=== PATIENT | male | born 1975 | race Caucasian/White ===

== ENCOUNTER 2016-09-12 08:27 | Emergency (ER) | payer MEDICAID ==
[2016-09-12] MEDS ORDERED: ASPIRIN 81 MG TABLET, CHEWABLE PO ONE (09:08)
--- NOTE | 2016-09-12 09:12 | ER Document Report ---
ED General - General Chief Complaint: Chest Pain Stated Complaint: CHEST PAIN Time Seen by Provider: 09/12/16 08:34 Mode of Arrival: Ambulatory Information source: Patient Notes: 41-year-old male history of hypertension anxiety presents with complaints of chest pain when he takes a deep breath. Patient notes when he is not taking a deep breath there is no pain. Patient notes pain started earlier today denies any fevers or chills denies any nausea or vomiting.. pt denies any recent travel , denies any calf pain, denies any fh of dvt or pe TRAVEL OUTSIDE OF THE [place] IN LAST 30 DAYS: No - HPI Onset: Just prior to arrival Onset/Duration: Sudden Quality of pain: Sharp Severity: Mild Pain Level: 1 Associated symptoms: Chest pain, Shortness of breath Exacerbated by: Coughing, Deep breathing Relieved by: Denies Similar symptoms previously: No Recently seen / treated by doctor: No - Related Data Allergies/Adverse Reactions: No Known Allergies Allergy (Unverified 09/12/16 08:38) Home Medications: Current Home Medications No Home Medications 09/12/16 [History] Past Medical History - Social History Smoking Status: Current Every Day Smoker Cigarette use (# per day): Yes Chew tobacco use (# tins/day): No Smoking Education Provided: No Family History: Reviewed & Not Pertinent Renal/ Medical History: Denies: Hx Peritoneal Dialysis Review of Systems - Review of Systems Notes: REVIEW OF SYSTEMS: CONSTITUTIONAL : Denies fever, chills, or sweats. Denies recent illness. EENT: Denies eye, ear, throat, or mouth pain or symptoms. Denies nasal or sinus congestion or discharge. Denies throat, tongue, or mouth swelling or difficulty swallowing. CARDIOVASCULAR: Denies chest pain. Denies palpitations or racing or irregular heart beat. Denies ankle edema. RESPIRATORY: Admits to pain with breathing. GASTROINTESTINAL: Denies abdominal pain or distention. Denies nausea, vomiting , or diarrhea. Denies blood in vomitus, stools, or per rectum. Denies black, tarry stools. Denies constipation. GENITOURINARY: Denies difficulty urinating, painful urination, burning, frequency, blood in urine, or discharge. MUSCULOSKELETAL: Denies back or neck pain or stiffness. Denies joint pain or swelling. SKIN: Denies rash, lesions or sores. HEMATOLOGIC : Denies easy bruising or bleeding. LYMPHATIC: Denies swollen, enlarged glands. NEUROLOGICAL: Denies confusion or altered mental status. Denies passing out or loss of consciousness. Denies dizziness or lightheadedness. Denies headache. Denies weakness or paralysis or loss of use of either side. Denies problems with gait or speech. Denies sensory loss, numbness, or tingling. Denies seizures. PSYCHIATRIC: Denies anxiety or stress. Denies depression, suicidal ideation, or homicidal ideation. ALL OTHER SYSTEMS REVIEWED AND NEGATIVE. Dictation was performed using [employer] recognition software PHYSICAL EXAMINATION: GENERAL: Well-appearing, well-nourished and in no acute distress. HEAD: Atraumatic, normocephalic. EYES: Pupils equal round and reactive to light, extraocular movements intact, sclera anicteric, conjunctiva are normal. ENT: Nares patent, oropharynx clear without exudates. Moist mucous membranes. NECK: Normal range of motion, supple without lymphadenopathy LUNGS: Breath sounds clear to auscultation bilaterally and equal. No wheezes rales or rhonchi. HEART: Regular rate and rhythm without murmurs ABDOMEN: Soft, nontender, nondistended abdomen. No guarding, no rebound. No masses appreciated. Musculoskeletal: Normal range of motion, no pitting or edema. No cyanosis. NEUROLOGICAL: Cranial nerves grossly intact. Normal speech, normal gait. Normal sensory, motor exams PSYCH: Normal mood, normal affect. SKIN: Multiple tattoos Physical Exam - Vital signs Vitals: Temp Pulse Resp BP Pulse Ox 98.5 F 89 20 141/94 H 99 09/12/16 08:37 09/12/16 08:37 09/12/16 08:37 09/12/16 08:37 09/12/16 08:37 Course - Re-evaluation Re-evalutation: 09/12/16 09:11 Patient has very low risk for a pulmonary emboli however given that the pain occurs only with deep breathing I believe a CTA is appropriate rather than a d- dimer. This may be related more to the patient's smoking versus anxiety 09/12/16 09:49 Patient's troponin is noted to be elevated at 39.9, I immediately sent the patient for an the CTA without a renal function results. This number is unusual given the patient's presentation of pain with only deep breaths 09/12/16 11:28 09/12/16 11:29 CTA negative, marilou martínezd 09/12/16 11:[address] vega - Vital Signs Vital signs: Temp Pulse Resp BP Pulse Ox 98.5 F 89 19 121/78 98 09/12/16 08:37 09/12/16 08:37 09/12/16 11:01 09/12/16 11:01 09/12/16 11:01 - Laboratory Result Diagrams: 09/12/16 08:58 09/12/16 08:58 Laboratory results interpreted by me: 09/12/16 09/12/16 09/12/16 08:58 08:58 08:58 WBC 21.0 H Hgb 13.4 L Band Neutrophils % 1 L Abs Neuts (Manual) 15.3 H Abs Monocytes (Manual) 1.7 H APTT Carbon Dioxide 31 H BUN 28 H Glucose 141 H Direct Bilirubin 0.6 H AST 213 H ALT 145 H Creatine Kinase 1071 H CK-MB (CK-2) 21.50 H 09/12/16 08:58 WBC Hgb Band Neutrophils % Abs Neuts (Manual) Abs Monocytes (Manual) APTT 38.0 H Carbon Dioxide BUN Glucose Direct Bilirubin AST ALT Creatine Kinase CK-MB (CK-2) - Diagnostic Test Radiology reviewed: Image reviewed, Reports reviewed - EKG Interpretation by Me EKG shows normal: Sinus rhythm, [place], Intervals, QRS Complexes, ST-T Waves - Peaked T waves noted in lead V2 Critical Care Note - Critical Care Note Total time excluding time spent on procedures (mins): 44 Comments: 44 minutes of critical care time spent in direct contact evaluating and reevaluating the patient, treating symptoms, reviewing labs and studies and speaking with family and consultants excluding any procedures Discharge - Discharge Clinical Impression: Non-STEMI (non-ST elevated myocardial infarction) Chest pain Qualifiers: Chest pain type: unspecified Qualified Code(s): R07.9 - Chest pain, unspecified Condition: Stable Disposition: [facility]
[2016-09-12 09:21] LABS: HEMATOCRIT 39.7 % (37.9-51.0); HEMOGLOBIN 13.4 g/dL (13.5-17.0); HGB HCT DIFFERENCE 0.5; MEAN CORPUSCULAR HEMOGLOBIN 29.7 pg (27.0-33.4); MEAN CORPUSCULAR HGB CONC 33.7 g/dL (32.0-36.0); MEAN CORPUSCULAR VOLUME 88 fl (80-97); RED BLOOD COUNT 4.51 10^6/uL (4.35-5.55)
[2016-09-12 09:26] LABS: ALANINE AMINOTRANSFERASE 145 U/L (21-72); ALBUMIN 4.6 g/dL (3.5-5.0); ALKALINE PHOSPHATASE 86 U/L (38-126); ANION GAP 11 (5-19); ASPARTATE AMINO TRANSFERASE 213 U/L (17-59); BILIRUBIN,DIRECT 0.6 mg/dL (0.0-0.4); BILIRUBIN,TOTAL 0.8 mg/dL (0.2-1.3); BLOOD UREA NITROGEN 28 mg/dL (7-20); CALCIUM 9.8 mg/dL (8.4-10.2); CARBON DIOXIDE 31 mmol/L (22-30); CHLORIDE 101 mmol/L (98-107); CREATINE KINASE 1071 U/L (55-170); CREATININE RESULT 1.14 mg/dL (0.52-1.25); GLUCOSE 141 mg/dL (75-110); POTASSIUM 3.8 mmol/L (3.6-5.0); SODIUM 142.7 mmol/L (137-145); TOTAL PROTEIN 7.7 g/dL (6.3-8.2)
[2016-09-12 09:37] LABS: CREATINE KINASE MB 21.5 ng/mL (<4.55)
[2016-09-12 09:38] LABS: TROPONIN I 39.9 ng/mL
[2016-09-12 09:41] LABS: BAND NEUTROPHILS % (MANUAL) 1 % (3-5); BASOPHILS % (MANUAL) 0 % (0-2); EOSINOPHILS % (MANUAL) 0 % (0-6); LYMPHOCYTES % (MANUAL) 19 % (13-45); TOTAL CELLS COUNTED 100
[2016-09-12 09:42] LABS: RBC MORPHOLOGY COMMENT NORMO-CYTIC/CHROMIC
[2016-09-12] MEDS: NITROGLYCERIN 0.4 MG/TAB 25 TAB/BOTTLE SL PRN ×2 (10:10→10:40)
[2016-09-12] MEDS ORDERED: HEPARIN SOD (PORCINE) 1,000 UNIT/ML 10 ML VIAL IV ONE (10:28)
[2016-09-12] MEDS ORDERED: HEPARIN SODIUM,PORCINE/D5W 250 ML IV PRN (10:28)
[2016-09-12] MEDS ORDERED: HEPARIN SOD (PORCINE) 1,000 UNIT/ML 10 ML VIAL IV PRN (10:28)
[2016-09-12 10:38] LABS: PROTHROMBIN TIME 14.5 SEC (11.4-15.4)
[2016-09-12] MEDS ORDERED: MORPHINE SULFATE 10 MG/ML INJ IV ONE (11:02)
--- NOTE | 2016-09-12 11:08 | RADIOLOGY REPORT (SQ) ---
EXAM DESCRIPTION: CTA CHEST COMPLETED DATE/TIME: 09/12/2016 10:48 am REASON FOR STUDY: right sided chest pain with breathing COMPARISON: None. TECHNIQUE: CT scan of the chest performed using helical scanning technique with dynamic intravenous contrast injection. Images reviewed with lung, soft tissue and bone windows. Reconstructed coronal and sagittal MPR images reviewed. Additional 3 dimensional post-processing performed to develop Maximal Intensity Projection images (VT P). All images stored on PACS. All CT scanners at this facility use dose modulation, iterative reconstruction, and/or weight based d osing when appropriate to reduce radiation dose to as low as reasonably achievable (ALARA). [facility]: Dose Right [facility]: CareDose [facility]: Dose Right [facility]: Teradose 4D [facility]: [place] CONTRAST TYPE AND DOSE: contrast/concentration: Isovue 370.00 mg/ml; Total Contrast Delivered: 68.0 ml; Total Saline Delivered: 109.0 ml RENAL FUNCTION: BUN 28 creatinine 1.1 RADIATION DOSE: Up-to-date CT equipment and radiation dose reduction techniques were employed. CTDIv ol: 16.4 - 16.5 mGy. DLP: 575 mGy-cm. . LIMITATIONS: None. FINDINGS: LUNGS AND PLEURA: No masses, infiltrates, pneumothorax. No pleural effusions, calcificati ons. AORTA AND GREAT VESSELS: No aneurysm or dissection. HEART: No pericardial effusion. PULMONARY ARTERIES: No emboli visualized in the main pulmonary arteries or the segmental branches. HILAR AND MEDIASTINAL STRUCTURES: No identified masses or abnormal nodes. HARDWARE: None in the chest. UPPER ABDOMEN: No significant findings. Limited exam. THYROID AND OTHER SOFT TISSUES: No masses. No adenopathy. BONES: No acute or significant finding. 3D MIPS: Confirm above findings. OTHER: No other significant finding. IMPRESSION: NORMAL CTA OF THE CHEST. NO PULMONARY EMBOLI. TECHNICAL DOCUMENTATION: JOB ID: [id number] Quality ID # [id number]: Final reports with documentation of one or more dose reduction techniques (e.g., Au tomated exposure control, adjustment of the mA and/or kV according to patient size, use of iterative reconstruction technique) 2010 [employer]- All Rights Reserved
--- NOTE | 2016-09-12 11:14 | EKG REPORT ---
SEVERITY:- ABNORMAL ECG - SINUS RHYTHM INFERIOR INFARCT, AGE INDETERMINATE : Confirmed by: Barbara Spicer MD 12-Sep-2016 11:14:39
[2016-09-12] MEDS ORDERED: HYDROMORPHONE HCL INJ/PF 2 MG/ML AMPULE IV ONE ×2 (11:41→13:00)
[2016-09-12 11:54] LABS: APPEARANCE,URINE CLEAR; BILIRUBIN,URINE NEGATIVE (NEGATIVE); GLUCOSE, URINE NEGATIVE (NEGATIVE); KETONES,URINE TRACE mg/dL (NEGATIVE); LEUKOCYTE ESTERASE,URINE NEGATIVE (NEGATIVE); NITRITE,URINE NEGATIVE (NEGATIVE); PROTEIN,URINE 30 mg/dL (NEGATIVE)
[2016-09-12] MEDS ORDERED: ACETAMINOPHEN 325 MG TABLET PO ONE (11:54)
[2016-09-12 11:55] LABS: URINE SPECIFIC GRAVITY > 1.060
[2016-09-12] MEDS ORDERED: KETOROLAC TROMETHAMINE INJ/PF 30 MG/1 ML SDV IV ONE (13:00)
[2016-09-12 14:48] VITALS: BP 108/81
== END 2016-09-12 14:48 | disposition short-term general hospital (02) ==
LOC: ER 08:27
DX: I21.4 Non-ST elevation (NSTEMI) myocardial infarction (principal); I10 Essential (primary) hypertension; R07.1 Chest pain on breathing; R06.02 Shortness of breath; F17.210 Nicotine dependence, cigarettes, uncomplicated
CPT/HCPCS: 93005; 96376; 99291; 96374; 96375; 36415; 82553; 82550; 85025; 85610; 85730; 80053; 81001; 84484; 71275; 93010; J1644 ×2; J1885; J2270; J1170

== ENCOUNTER 2016-11-08 19:32 | Emergency (ER) | payer MEDICAID ==
--- NOTE | 2016-11-08 21:27 | RADIOLOGY REPORT (SQ) ---
EXAM DESCRIPTION: CHEST PA/LAT COMPLETED DATE/TIME: 11/08/2016 9:10 pm REASON FOR STUDY: CP COMPARISON: None. EXAM PARAMETERS: NUMBER OF VIEWS: two views TECHNIQUE: Digital Frontal and Lateral radiographic views of the chest acquired. RADIATION DOSE: NA LIMITATIONS: none FINDINGS: LUNGS AND PLEURA: No opacities, masses or pneumothorax. No pleural effusion. MEDIASTINUM AND HILAR STRUCTURES: No masses or contour abnormalities. HEART AND VASCULAR STRUCTURES: Heart normal size. No evidence for failure. BONES: No acute findings. HARDWARE: None in the chest. OTHER: No other significant finding. IMPRESSION: NO SIGNIFICANT RADIOGRAPHIC FINDING IN THE CHEST. TECHNICAL DOCUMENTATION: JOB ID: [id number] [employer]- All Rights Reserved
[2016-11-08] MEDS ORDERED: ASPIRIN 81 MG TABLET, CHEWABLE PO ONE (21:47)
[2016-11-08 22:01] LABS: ABSOLUTE BASOPHILS # (AUTO) 0.1 10^3/uL (0.0-0.2); ABSOLUTE EOSINOPHILS # (AUTO) 0.1 10^3/uL (0.0-0.6); ABSOLUTE LYMPHOCYTES (AUTO) 2.9 10^3/uL (0.5-4.7); ABSOLUTE MONOCYTES (AUTO) 2.2 10^3/uL (0.1-1.4); ABSOLUTE NEUT (AUTO) 11.3 10^3/uL (1.7-8.2); BASOPHILS % (AUTO) 0.4 % (0-2); EOSINOPHILS % (AUTO) 0.5 % (0-6); HEMATOCRIT 38.8 % (37.9-51.0); HEMOGLOBIN 13.3 g/dL (13.5-17.0); HGB HCT DIFFERENCE 1.1; LYMPHOCYTES % (AUTO) 17.7 % (13-45); MEAN CORPUSCULAR HEMOGLOBIN 28.9 pg (27.0-33.4); MEAN CORPUSCULAR HGB CONC 34.3 g/dL (32.0-36.0); MEAN CORPUSCULAR VOLUME 84 fl (80-97); MONOCYTES % (AUTO) 13.1 % (3-13); RED CELL DISTRIBUTION WIDTH 13.9 % (11.5-14.0); SEGMENTED NEUTROPHILS % (AUTO) 68.3 % (42-78); WHITE BLOOD COUNT 16.6 10^3/uL (4.0-10.5)
--- NOTE | 2016-11-08 22:10 | ER Document Report ---
ED Cardiac - General Chief Complaint: Chest Pain > 30 Stated Complaint: CHEST PAIN Time Seen by Provider: 11/08/16 21:45 Mode of Arrival: Ambulatory Information source: Patient TRAVEL OUTSIDE OF THE [place] IN LAST 30 DAYS: No - HPI Patient complains to provider of: Chest pain, Chest tightness, Shortness of breath Use of: denies: Alcohol, Amphetamines, Bath salts, Caffeine, Cocaine, Decongestants Was the onset of pain: Sudden - woke him up from sleep, sharp pain with deep inspiration. When did pain begin: 2-2.5 days ago Is the pain a: New problem - pt states it feels like his LA 2 mos ago. Chest pain location: Substernal, Pleuritic - left Quality of pain: Constant, Moderate, Pressure, Radiating - left shoulder, Sharp Chest pain radiation location: Left shoulder Severity now: Moderate Severity at worst: Moderate Pain level currently: 4 Chest pain precipitating factors: with exertion and at rest Cardiac risk factors: Hypertension, Smoker - former, quit 2mos ago, Hx LA - 2mos ago Positive cardiac history: Yes Associated symptoms: Fever/chills, Shortness of breath. denies: None, Abdominal pain, Anxiety, Back pain, Cool extremities, Diaphoresis, Dizziness, Edema, Fatigue, Headache, Heartburn, Hypotension, Jaw pain, Lightheaded, Nausea/ vomiting, Neck pain, Palpitations, Rash, Swelling/lump in chest, Syncope, Weakness, Other Exacerbated by: Activity, Deep breaths, Torso movement Relieved by: Nothing - pt tried nitro and it did not help Similar symptoms previously: Yes - 2mos ago with his LA Notes: Patient was diagnosed with an LA 2 months ago and had 3 stents placed. Patient then developed pericarditis soon afterwards and was in the hospital for 4 more days. Patient states that the symptoms mimic that of when he was here 2 months ago. Leaning forward does not help with his pain. Patient states he has been running a fever over the last couple days as well. Patient denies any other recent illness, travel, surgery, or any calf pain. Denies any drug allergies. Patient states that he is taking a blood thinner and baby aspirin. - Related Data Allergies/Adverse Reactions: No Known Allergies Allergy (Unverified 09/12/16 08:38) Past Medical History - Social History Smoking Status: Former Smoker Chew tobacco use (# tins/day): No Frequency of alcohol use: None Drug Abuse: None Family History: Reviewed & Not Pertinent Patient has suicidal ideation: No Patient has homicidal ideation: No - Past Medical History Cardiac Medical History: Reports: Hx Hypertension Pulmonary Medical History: Reports: Hx Asthma Renal/ Medical History: Denies: Hx Peritoneal Dialysis Past Surgical History: Reports: Hx Cardiac Catheterization, Hx Cardiac Surgery - stents x3 Review of Systems - Review of Systems Notes: REVIEW OF SYSTEMS: CONSTITUTIONAL : Denies fever, chills, or sweats. Denies recent illness. EENT: Denies eye, ear, throat, or mouth pain or symptoms. Denies nasal or sinus congestion or discharge. Denies throat, tongue, or mouth swelling or difficulty swallowing. CARDIOVASCULAR: see hpi RESPIRATORY: see hpi GASTROINTESTINAL: Denies abdominal pain or distention. Denies nausea, vomiting , or diarrhea. Denies blood in vomitus, stools, or per rectum. Denies black, tarry stools. Denies constipation. GENITOURINARY: Denies difficulty urinating, painful urination, burning, frequency, blood in urine, or discharge. MUSCULOSKELETAL: see hpi SKIN: Denies rash, lesions or sores. NEUROLOGICAL: Denies confusion or altered mental status. Denies passing out or loss of consciousness. Denies dizziness or lightheadedness. Denies headache. Denies weakness or paralysis or loss of use of either side. Denies problems with gait or speech. Denies sensory loss, numbness, or tingling. ALL OTHER SYSTEMS REVIEWED AND NEGATIVE. Dictation was performed using [employer] voice recognition software Physical Exam - Vital signs Vitals: Temp Pulse BP Pulse Ox 97.9 F 96 134/80 H 100 11/08/16 20:15 11/08/16 20:15 11/08/16 20:15 11/08/16 20:15 Notes: PHYSICAL EXAMINATION: GENERAL: Well-appearing, well-nourished and in no acute distress. A&Ox4 HEAD: Atraumatic, normocephalic. EYES: Pupils equal round and reactive to light, extraocular movements intact, sclera anicteric, conjunctiva are normal. ENT: Nares patent and without discharge. oropharynx clear without exudates. No tonsilar hypertrophy or erythema. Moist mucous membranes. No sinus tenderness. NECK: Normal range of motion, supple without lymphadenopathy. No rigidity. Chest: no flail chest. Non-tender. LUNGS: Breath sounds clear to auscultation bilaterally and equal. No wheezes rales or rhonchi. HEART: Regular rate and rhythm without murmurs, rubs, gallops. ABDOMEN: Soft, nontender, nondistended abdomen. No guarding, no rebound. No masses appreciated. Normal bowel sounds present. No CVA tenderness bilaterally. Musculoskeletal: FROM to passive/active. Strength 5+/5. Extremities: No cyanosis, clubbing, or edema b/l. Peripheral pulses 2+. Capillary refill less than 3 seconds. NEUROLOGICAL: Cranial nerves grossly intact. Normal speech. Normal sensory, motor exams PSYCH: Normal mood, normal affect. SKIN: Warm, Dry, normal turgor, no rashes or lesions noted. Course - Re-evaluation Re-evalutation: 11/09/16 01:20 Patient is an afebrile, well-hydrated, 41-year-old male who presents the ED with chest pain, suspect possible unstable angina based on H&P today. Vitals are stable. PE otherwise unremarkable. CBC had a white count of 16, but was less than when he was here 2 months ago. CMP was unremarkable. First cardiac enzyme was negative with the second pending. EKG did show ischemic change with T-wave inversions to the inferior leads when compared to the previous. Second EKG is to be obtained with the second cardiac enzyme. Patient continues to have chest pain. Morphine was given IV. Aspirin was given as well. Nitropaste applied. Reviewed case with Dr. 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 Reviewed case with Dr. Bowman who is in agreement with transfer/plan: Reviewed case with Dr. Miller ([facility]) who accepted patient to the cardiac-tele floor. 11/09/16 02:27 2nd trop negative 2nd EKG showed inferior lead ischemic change with T wave inversion - Vital Signs Vital signs: Temp Pulse Resp BP Pulse Ox 97.9 F 96 19 115/79 98 11/08/16 20:15 11/08/16 20:15 11/09/16 02:01 11/09/16 02:00 11/09/16 02:01 - Laboratory Result Diagrams: 11/08/16 21:50 09/25/17 21:50 Laboratory results interpreted by me: 11/08/16 11/08/16 21:50 21:50 WBC 16.6 H Hgb 13.3 L Monocytes % 13.1 H Absolute Neutrophils 11.3 H Absolute Monocytes 2.2 H Direct Bilirubin 0.5 H AST 15 L Discharge - Discharge Clinical Impression: Chest pain Qualifiers: Chest pain type: unspecified Qualified Code(s): R07.9 - Chest pain, unspecified Condition: Stable Disposition: [facility] Referrals: RAYO TERRY JR, MD [Primary Care Provider] - Follow up as needed
[2016-11-08 22:22] LABS: ALANINE AMINOTRANSFERASE 29 U/L (21-72); ALBUMIN 4.3 g/dL (3.5-5.0); ALKALINE PHOSPHATASE 80 U/L (38-126); ANION GAP 12 (5-19); ASPARTATE AMINO TRANSFERASE 15 U/L (17-59); BILIRUBIN,DIRECT 0.5 mg/dL (0.0-0.4); BILIRUBIN,TOTAL 1.2 mg/dL (0.2-1.3); BLOOD UREA NITROGEN 11 mg/dL (7-20); CALCIUM 9.7 mg/dL (8.4-10.2); CARBON DIOXIDE 25 mmol/L (22-30); CHLORIDE 104 mmol/L (98-107); CREATINE KINASE 64 U/L (55-170); CREATINE KINASE MB 0.5 ng/mL (<4.55); GLUCOSE 103 mg/dL (75-110); SODIUM 141.2 mmol/L (137-145); TOTAL PROTEIN 7.1 g/dL (6.3-8.2)
[2016-11-08 22:25] LABS: TROPONIN I 0.026 ng/mL
[2016-11-08] MEDS ORDERED: MORPHINE SULFATE 10 MG/ML INJ IV ONE (22:36)
[2016-11-09] MEDS ORDERED: MORPHINE SULFATE 10 MG/ML INJ IV ONE (00:05)
[2016-11-09] MEDS ORDERED: NITROGLYCERIN 2% OINTMENT 1 GM PACKET TP ONE (00:32)
[2016-11-09 02:13] VITALS: BP 115/79
--- NOTE | 2016-11-09 16:46 | EKG REPORT ---
SEVERITY:- ABNORMAL ECG - SINUS RHYTHM MULTIPLE VENTRICULAR PREMATURE COMPLEXES SHORT [place] INTERVAL, ACCELERATED AV CONDUCTION BORDERLINE INFERIOR Q WAVES ABNORMAL T, CONSIDER ISCHEMIA, INFERIOR LEADS BORDERLINE PROLONGED QT INTERVAL : Confirmed by: Barbara Spicer MD 09-Nov-2016 16:46:00
--- NOTE | 2016-11-09 16:46 | EKG REPORT ---
SEVERITY:- ABNORMAL ECG - SINUS RHYTHM ABNORMAL T, PROBABLE ISCHEMIA, INFERIOR LEADS : Confirmed by: Barbara Spicer MD 09-Nov-2016 16:45:56
== END 2016-11-09 02:21 | disposition short-term general hospital (02) ==
LOC: ER 19:32
DX: R07.9 Chest pain, unspecified (principal); R06.02 Shortness of breath; I10 Essential (primary) hypertension; I25.2 Old myocardial infarction; Z87.891 Personal history of nicotine dependence
CPT/HCPCS: 93005 ×2; 96376; 99285; 96374; 36415; 82553; 82550; 85025; 85610; 80053; 84484; 85379; 71020; 93010 ×2; J3490; J2270 ×2